=== PATIENT | female | born 1930 | race Caucasian/White ===

== ENCOUNTER 2016-08-24 08:07 | Inpatient (IN) | payer OTHER ==
--- NOTE | ~2016-08-24 | CN ---
Consultation Report [facility] [address] [place]. [address] NAME: IDALIA MULLIGAN : 31 STATUS : ADM IN PAT#: [id number] AGE: 85 ADM/REG DATE : 08/24/16 MR#: [id number] REPORT SERV DATE: 08/27/16 DICTATED BY: HUGO FRAGA DATE: 08/27/16 REPORT STATUS : Draft TRANSCRIBED BY: MODJodi DATE: 08/27/16 CONSULTATION DATE OF CONSULTATION: REASON FOR CONSULTATION: Hyponatremia. HISTORY OF PRESENT ILLNESS: This is a fairly pleasant 85-year-old female patient, who was admitted to the Hospitalist Service. She was initially admitted by Dr. Humphreys with a complaint of falls and weakness. The patient has had some level of intolerance and skin reactions to different medications and continues to have a skin disorder particularly on her lower extremities. This was felt to be subsequent to some medications is unclear. This patient has been discussed at length with her primary hospitalist, Dr. Mauri Navas. The patient is seen in the outpatient setting by insurance representative who is currently evaluating her for her skin disorder. She recently was evaluated at outpatient clinic in [facility] for her complaints as listed above. She was instructed by the staff at the outpatient clinic to aggressively provide hydration. Subsequently, she went home and did as instructed and progressively drove her sodium lower. She was noted to be in congestive heart failure with atrial fibrillation here on evaluation and hyponatremic with her sodium in the 120s. The patient was provided one dose of Samsca on 08/27/2015 with her sodium responding from a 120 to 123. We are asked to provide further evaluation as well as clinical support and possible further dosing of Samsca. The patient is awake and alert this afternoon. She denies current chest pain. No nausea, vomiting, or diarrhea. PAST MEDICAL HISTORY: Positive for previous hysterectomy, arthrosclerotic cardiovascular disease, lower extremity skin disorder followed by Dr. Parsons. Atrial fibrillation with no chronic anticoagulation due to falls. ALLERGIES: THE PATIENT IS SAID TO BE INTOLERANT OF SEVERAL MEDICATIONS AND WAS NOT ACTIVELY TAKING HER THYROID MEDICATION AT HOME WITH NOTED HYPOTHYROIDISM AND ELEVATED TSH HERE. HOME MEDICATIONS: Include metoprolol 25 mg p.o. in the evening and 50 mg in the morning. SOCIAL HISTORY: She lives in [place] and is provided some level of assistance and care by her son who lives close by. . No EtOH. No illicit drugs. No tobacco. FAMILY HISTORY: Noncontributory and not reviewed during this consultation. REVIEW OF SYSTEMS: Review of systems is completed. Please see HPI for pertinent details. PHYSICAL EXAMINATION: VITAL SIGNS: Blood pressure 146/65, temperature 97.4, respiratory rate is 16, and she is 100% on room air. Consultation Report [address] [place]. [address] NAME: IDALIA MULLIGAN : 31 STATUS : ADM IN PAT#: [id number] AGE: 85 ADM/REG DATE : 08/24/16 MR#: [id number] REPORT SERV DATE: 08/27/16 DICTATED BY: HUGO FRAGA DATE: 08/27/16 REPORT STATUS : Draft TRANSCRIBED BY: GUNJAN DATE: 08/27/16 GENERAL: She is awake, alert, oriented x3, in no acute distress, lying in bed during evaluation. HEENT: Normocephalic and atraumatic. Normal ocular movements. No scleral icterus. No conjunctival pallor is appreciated. NECK: Supple without thyromegaly. No JVD or mass. CHEST: Shows positive S1 and S2. No rubs. No gallops. LUNGS: Diminished, clear to auscultation throughout. Normal expansion and effort bilaterally. No rhonchi or wheezes to auscultation. ABDOMEN: Shows positive bowel sounds in all four quadrants. No appreciable mass or tenderness. GENITOURINARY: Deferred. She has a Osorio catheter to bedside drainage. NEUROLOGIC: appears to be grossly intact. Nonfocal. SKIN: Warm, dry, and intact to visualized surfaces. She does have a diffuse macular appearing macular nonpapillary rash on her bilateral lower extremities extending from her knees distally. This is followed by a insurance representative in the outpatient setting, Dr. Parsons. NEUROLOGIC: She appears to be grossly intact. Nonfocal. She is of appropriate mood and affect. LABORATORY DATA: Pertinent laboratories and imaging to this evaluation are as follows. B- natriuretic peptide 240.2. Electrolyte profile: Sodium 122, potassium 4.4, chloride 83, CO2 of 30, BUN 24, creatinine 1.11, reflected GFR at 46 mL/minute, glucose of 84, and calcium at 9.7. Most recent CBC shows white blood cell count of 4.9, RBC 4.18, hemoglobin 12.2, hematocrit 35.6, and platelets at 164. TSH is 13.900 with a T4 of 9.2, free T4 of 1.04. 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 She has been provided workup here for congestive heart failure with examination and clinical input from Cardiology. She is currently maintained on 1 mg of Bumex daily and appears to be reasonably euvolemic. She has received 1 dose of Samsca at 7.5 mg with minimal response to her sodium and her fluid restrictions have done little in the way to provide sustainable rise in her serum sodium. We will collect urine sodium, urine osmolality for evaluation which would suggest 15 mg of p.o. Samsca this evening with re-evaluation of her clinical laboratories in the morning. With dosing of her Samsca, we will relax her fluid restriction to 1500 mL daily and follow her with serial laboratories and further supportive care. Modify treatment plan based on clinical presentation, patient laboratory results, further consultation with renal attending. We appreciate consultation, glad to follow with you. DICTATED BY: Esutardo Clayton NP Consultation Report [address] [address] NAME: IDALIA MULLIGAN : 31 STATUS : ADM IN PAT#: [id number] AGE: 85 ADM/REG DATE : 08/24/16 MR#: [id number] REPORT SERV DATE: 08/27/16 DICTATED BY: HUGO FRAGA DATE: 08/27/16 REPORT STATUS : Draft TRANSCRIBED BY: MODJodi DATE: 08/27/16 /GUNJAN Hugo Fraga M.D. / [id number] CC: Marianne Valdez M.D.
--- NOTE | ~2016-08-24 | HP ---
History And Physical [address] [facility]. [address] NAME: IDALIA MULLIGAN : 31 STATUS : ADM IN [facility]#: [id number] AGE: 85 ADM/REG DATE : 08/24/16 MR#: [id number] REPORT SERV DATE: 08/24/16 DICTATED BY: EMELY RENEE DATE: 08/24/16 REPORT STATUS : Draft TRANSCRIBED BY: MODJodi DATE: 08/24/16 DATE OF ADMISSION: 08/24/2016 REASON FOR ADMISSION: Falling, weakness, and anasarca, suspect myxedema. HISTORY: This is an 85-year-old white female, who has trouble with multiple thyroid medications. She is followed by Dr. Sherri Arambula and is on natural thyroid at home. She went to the procurement inspector, Dr. Parsons and has seen Dr. Rodriguez in the past. She has a rash and was thought to have hypothyroidism causing the rash and the thyroid was doubled. Dr. Arambula reduced her thyroid back down. This is all that transpired in about the last two weeks. She has been going downhill since doubling the thyroid, now is feeling weak. She has been having some falling at home. She has some leg cramps and restless legs. The rash is worsening. She came to the emergency room where she was evaluated by Sampson SMITH, who found her BNP to be elevated and chest x-ray supportive of cardiomegaly with moderate congestive heart failure. She is admitted to the hospital for discovery of the heart failure and attention to the hypothyroidism. PAST MEDICAL HISTORY: She had a hysterectomy in the past. She was last hospitalized here in 2009. She is followed by Dr. Ky Painting and Dr. Ankit Lindquist for atherosclerotic cardiovascular disease but the patient is unable to remember the names. Her primary care doctor is Dr. Emely Sepulveda. She has seen Dr. Rodriguez and Dr. Parsons in the past for rash. She says she is alert, she is intolerant to several medications that give her a rash. HOME MEDICATIONS: Her home medications are limited to the following: Metoprolol 25 mg p.o. every evening and 50 mg every morning. She does have a longstanding history of atrial fibrillation over 4 years duration. She was told to take an aspirin a day but was not on any anticoagulant for this. ALLERGIES: SHE SAYS ARE ANTIBIOTICS. SOCIAL HISTORY: She lives alone in [place]. She has a son who lives locally and comes to see her from time to time and a daughter who lives in [place], [place]. She has a small dog that lives at home with her. She has been for many years. She does not smoke cigarettes or drink any alcohol. FAMILY HISTORY: She does not recall any diseases that run in the family. REVIEW OF SYSTEMS: She is having leg cramps. She hurts all over from her head to her toes. Her rash has gotten worse since she doubled her thyroid. She is intolerant of most thyroid medicines including Synthroid she believes. She has had fogginess of expression for the last four or five days. No fever, chills, or night sweats. No seizures, convulsions. No melena or hematemesis as far as she can recall. No chest pain. The remainder of the review of systems is negative. She has had a kidney stone in the past. History And Physical [address] [address] NAME: IDALIA MULLIGAN : 31 STATUS : ADM IN [facility]#: [id number] AGE: 85 ADM/REG DATE : 08/24/16 MR#: [id number] REPORT SERV DATE: 08/24/16 DICTATED BY: EMELY RENEE DATE: 08/24/16 REPORT STATUS : Draft TRANSCRIBED BY: GUNJAN DATE: 08/24/16 PHYSICAL EXAMINATION: VITAL SIGNS: Her blood pressure was 177/140 with a heart rate of 90, respiratory rate 18, and afebrile. HEENT: EOMI. Sclerae clear. Conjunctivae pink. She has periorbital edema with waxy appearance to her skin. NECK: Her neck is slightly supple. Carotids equal. No bruit. No thyroid. CHEST: Clear anterior and laterally. HEART. Irregularly irregular. No murmur. ABDOMEN: Soft, nontender. Bowel sounds positive. Slightly protuberant. EXTREMITIES: Have 2+ pitting edema bilaterally. Distal pulses are trace in the dorsalis pedis posterior tibial. SKIN: There is nonblanching rash that appears maculopapular with lesions ranging from 3 to 5 mm all over her body. She has a large ecchymosis on her right knee from falling. LYMPHATICS: There is no adenopathy palpable. BREASTS: Grossly without mass. LABORATORY: CT scan of her brain shows no acute intracranial finding. Her Chem profile showed a procalcitonin less than 0.05. Sodium is 124, potassium 4.3, creatinine 0.88, BUN 24, and magnesium 1.9. CPK was elevated at 218 with a 9.6 percent MB fraction. Troponin less than 0.02. C-spine CT showed osteopenia with no compression fractures. Minimal 2 mm subluxation of 4 on 5 and degenerative changes at C5-6 and C6-7. BNP was 511. Lactate obtained at 1.1. The hemoglobin 11.5, hematocrit 33.7, white count is 4.3, and platelets are 157,000. The INR is 1.1. Portable chest showed cardiomegaly. ASSESSMENT: 1. Slight decline with feeling bad for the last two weeks duration. I suspect myxedema. TSH is ordered but not available yet. 2. Falling. Unsteady on the feet. Elevated CPK may be from the fall though may also be from a myopathy. 3. Muscle cramps. Legs are having muscle cramps. She was given IV Bumex earlier and may be a fall to the diuretic or may be part of a myxedematous myopathy. 4. Ecchymosis right knee. 5. Anasarca possibly due to myxedema. 6. History of urinary incontinence. 7. Polydipsia recently may be accounting for the increase in volume overload. 8. Hypothyroidism. Check TSH. 9. Prior cardiac history is consistent with atrial fibrillation followed by Dr. Painting and Dr. Lindquist. 10.Rash, non-blanching, diffuse, has seen two dermatologists. Consider vasculitis, possibly drug induced by her history. 11.Orthopnea. She is short of breath, lying down. We will check the echocardiogram during this hospitalization to evaluate the left ventricular ejection fraction and look for possible pericardial effusion. 12.History of hyponatremia. 13.Atrial fibrillation, longstanding, not anticoagulated. History And Physical [address] [place]. 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 15.Encephalopathy. Slow mentation consistent with hypothyroidism in the absence of the CT evidence of large ventricles though with her having both urinary incontinence and change in mental status. I would have to consider normal pressure hydrocephalus as a possible cause. PLAN: We are going to admit to the hospital. Check TSH urgently. Diuretics, replace electrolytes, perhaps start her on digoxin and consult Dr. Painting who knows the patient well for possible additional medication. SONIA/GUNJAN Emely Renee M.D. / [id number] CC: Marianne Valdez MD David Denman, M.D.
--- NOTE | ~2016-08-24 | IDS ---
Interim Discharge Summary [facility] [address] [place]. [address] NAME: IDALIA MULLIGAN : 31 STATUS : ADM IN PAT#: [id number] AGE: 85 ADM/REG DATE : 08/24/16 MR#: [id number] REPORT SERV DATE: 08/29/16 DICTATED BY: GARCÍA BUCIO DATE: 08/29/16 REPORT STATUS : Draft TRANSCRIBED BY: MODL DATE: 08/29/16 ADMISSION DATE: 08/24/2016 DISCHARGE DATE: TRACK GREASER: Demario Parsons M.D. QUANTITATIVE RESEARCH ANALYST: Ky Painting M.D. and he consulted here and signed off as well. CONSULTING PHYSICIAN: Renal, Dr. Mcdaniel. INTERIM DIAGNOSES: 1. Acute systolic congestive heart failure, improving. 2. Atrial fibrillation, controlled. 3. Coronary artery disease. 4. Hypertension. 5. Hyponatremia. 6. Hypothyroidism. 7. Dermatitis. DIAGNOSTIC EXAMS: CAT scan of the brain without contrast showing no acute intracranial finding demonstrated. Cervical CAT scan showing osteopenia, no compression fractures, minimal 2 mm subluxation at C4-C5 related to facet DJD, severe degenerative disk disease C5- C6 and C6-C7. Chest x-ray showing cardiomegaly, moderate failure. Echocardiogram showing EF of 45%. Normal right ventricular chamber size and systolic function, mild mitral, aortic, and tricuspid regurgitation, mild pulmonary hypertension. HOSPITAL COURSE: Please refer to the H and P done by Dr. Humphreys dated on 08/24/2016. Briefly, this is an 85-year-old female, who comes in with weakness. The patient used to follow up with Dr. Mariano but for about two years now has been using a walk-in clinic. The patient has multiple episodes of a rash and is following up with Dr. Parsons. She has several bouts of dermatitis, a bout of molluscum and a bout of actinic keratosis, and they tried several medications on her and the one that worked with good results last year was CellCept at 250 mg twice a day. The patient is afraid of using any medications as she fears that this would increase her rash and that has been her main problem. Meanwhile, she was following up with walk-in clinic. She was found to have hypothyroidism and they increased her thyroid medications. She then contacted Dr. Sherri Arambula, her service agent, and told her to bring it back down. She was also diagnosed with constipation and was told to increase her fluid intake and has been getting weaker for the past 10 days, finally was then brought to the emergency room, admitted by Dr. Humphreys and was found to be in congestive heart failure and hyponatremic. Her thyroid medication was increased as the TSH was found to be elevated and we got an echocardiogram, which shows the above findings. We got Dr. Painting involved and agreed with the plan and then signed off after a couple of days. As her volume status improve, her sodium remained low. She got two doses of Samsca and yet the sodium remains around 120 to 122. We got Renal involved, managed fluids, and we see the sodium trending upwards now with fluid restrictions and diuresis, and the patient seems to be clinically improving as well. We got Physical Therapy involved. They recommended the Interim Discharge Summary [address] [address] NAME: IDALIA MULLIGAN : 31 STATUS : ADM IN PAT#: [id number] AGE: 85 ADM/REG DATE : 08/24/16 MR#: [id number] REPORT SERV DATE: 08/29/16 DICTATED BY: GARCÍA BUCIO. DATE: 08/29/16 REPORT STATUS : Draft TRANSCRIBED BY: GUNJAN DATE: 08/29/16 patient to go to rehab, so once the patient's sodium improves further. The patient will need to follow up with rehab. Partner of [facility] will be following up the patient starting Tuesday. SOCO/GUNJAN García Bucio M.D. / [id number] CC: Marianne Valdez M.D.
--- NOTE | ~2016-08-24 | CN ---
Consultation Report [facility] [address] [place]. [address] NAME: IDALIA MULLIGAN : 31 STATUS : ADM IN PAT#: [id number] AGE: 85 ADM/REG DATE : 08/24/16 MR#: [id number] REPORT SERV DATE: 08/26/16 DICTATED BY: EVA PAINTING JR. DATE: 08/26/16 REPORT STATUS : Draft TRANSCRIBED BY: MODL DATE: 08/26/16 CARDIOLOGY CONSULT DATE OF CONSULTATION: 08/26/2016 REASON FOR CONSULTATION: CHF, atrial fibrillation. HISTORY OF PRESENT ILLNESS: Idalia Mulligan is an 85-year-old white female with history of multiple falls and refusal of anticoagulation for her chronic atrial fibrillation in the past. She presented to the hospital with pulmonary vascular congestion and cardiomegaly on her chest x-ray. Troponin normal. CPK elevated. TSH elevated at 13.9, free T4 of 1.0. Since being in the hospital, she has been aggressively diuresed with intravenous Bumex. She currently is not complaining of any chest pain. She says her breathing still is a bit short. She seems to be euvolemic on exam. Echo findings reviewed. In 2013, when I saw her last, her ejection fraction was 55%. It is now 45% and left atrial dimension has increased slightly from 4.0 to 4.2 cm and pulmonary artery pressure is mildly elevated at 44 mmHg. Sodium this morning 120, potassium 4.4, BUN and creatinine 19 and 1.0 respectively. ALLERGY: To some antibiotics. SOCIAL HISTORY: Has living will. Declines CPR life support, treatment of new conditions, tube feeding, etc. This is to be followed if quality of life becomes unacceptable and condition is irreversible. No illicit drugs. MEDICATIONS: Home medication and hospital medication list reviewed. Other physicians include primary care physician, Dr. Sepulveda and travel guide, Dr. Sherri Arambula. FAMILY HISTORY: Noncontributory. PHYSICAL EXAMINATION: BP: 130/61. PULSE: 62 to 75 and irregularly irregular. 99% saturation 2 L, respirations 18, afebrile. HEENT: No xanthelasma. NECK: No JVD at 30 degrees, no thyromegaly, no carotid bruit. LUNGS: Clear to auscultation and percussion. COR: No thrills, heaves, normal S1, S2. No gallop. No rub. No murmur. ABD: Soft, nontender, no hepatosplenomegaly, no mass. Consultation Report [address] [place]. [address] NAME: IDALIA MULLIGAN : 31 STATUS : ADM IN PAT#: [id number] AGE: 85 ADM/REG DATE : 08/24/16 MR#: [id number] REPORT SERV DATE: 08/26/16 DICTATED BY: EVA PAINTING JR. DATE: 08/26/16 REPORT STATUS : Draft TRANSCRIBED BY: ERICAL DATE: 08/26/16 EXT: Without pulse deficit. Bilateral lower extremity rash and mild bilateral edema. MS: Back without spine or costovertebral angle tenderness. NEURO: Symmetric findings. DISCUSSION: Chronic atrial fibrillation with controlled ventricular response with beta russell. Suggest continuation of the metoprolol at the current dose. Her ejection fraction has fallen over the last three years from 55% to 45% with some pulmonary congestive symptoms and signs. With intravenous loop diuretic, her sodium has dropped to 120 in spite of the fluid restriction. POTATO CHIP FRIER function a concern. Also, multiple fall history. In the past, she has refused anticoagulation and it is probably contraindicated in the present. She remains hypothyroid on laboratory studies. SUGGESTIONS: Continue beta russell for rate control. Agree with no anticoagulation for now and in the foreseeable future, but also reduce her loop diuretic and check a BNP in the morning. Treat hyponatremia, 120, more aggressively. Try one dose of 7.5 mg of tolvaptan at tonight and check electrolytes in the morning. Treat hypothyroidism. Thank you for this consultation. Dr. Mendoza and group to follow beginning tomorrow. DAVID/GUNJAN Eva Painting Jr., M.D. / [id number] CC: Marianne Valdez M.D.
--- NOTE | ~2016-08-24 | DS ---
Discharge Summary [facility] [address] [place]. [address] NAME: IDALIA MULLIGAN : 32 STATUS : DIS IN PAT#: [id number] AGE: 85 ADM/REG DATE : 08/24/16 MR#: [id number] REPORT SERV DATE: 09/03/16 DICTATED BY: DATE: REPORT STATUS : Draft TRANSCRIBED BY: MODL DATE: 09/02/16 ADMISSION DATE: 08/24/2016 DISCHARGE DATE: 09/02/2016 DISCHARGE DIAGNOSES: 1. Acute on chronic systolic heart failure. 2. Chronic atrial fibrillation without anticoagulation. 3. Hyponatremia. 4. Hypothyroid. 5. Hypertension. 6. Anasarca. 7. Coronary artery disease. 8. Multiple recent falls. CONSULTATIONS: Cardiology, Dr. Painting and Nephrology, Dr. Fraga. PROCEDURES AND IMAGIN. 08/24/2016, CT of the brain without contrast showed no acute intracranial finding. 2. 08/24/2016, portable chest x-ray showed cardiomegaly with moderate failure. HOSPITAL COURSE: This is a pleasant 85-year-old white female who has been admitted per Dr. Humphreys. Please see H and P dated 08/24/2016 for complete details regarding patient's admission. In brief, the patient was admitted for anasarca, hypothyroidism, and polydipsia. I assumed care of this patient on 09/01/2016. Please see interim discharge summary dictated by Dr. Navas on 08/29/2016. During the patient's stay, she has had increased weakness, congestive heart failure, and hyponatremia. Nephrology has been involved in managing her fluid status, and the patient has been clinically improving. At the time of my first assessment on 09/01, the patient had mild nonpitting edema to her knees which has now decreased to her lower sherman and ankle. The patient does have a scattered rash that is nonpruritic on her extremities and lower abdomen and has had history of seeing two prior dermatologists for this reason. The patient is also followed up by Dr. Sherri Arambula, Endocrinology, for her thyroid. The patient is not anticoagulated per Cardiology secondary to her multiple falls. The patient's ejection fraction was 45%. The patient's acute systolic heart failure has resolved to baseline. Cardiology defers statin at this time. The patient does follow up with Dr. Painting on a regular basis. The patient has been experiencing hyponatremia and has been stable for the last three days between 129 and 128. We will be ordering renal function profiles twice weekly x3 weeks during her stay at rehab. TSH will be reassessed in 6 weeks. The patient's hypertension has been stable. The patient continues to be on aspirin and beta-russell for her coronary artery disease. The patient has been having no complaint of pain, has been using bedpan instead of getting up to the bathroom. She denies any shortness of breath. Full 10 point exam was done. PHYSICAL EXAMINATION: VITAL SIGNS: Blood pressure is 152/69, O2 saturation is 98% on room air, temp is 96.7, heart Discharge Summary [address] [address] NAME: IDALIA MULLIGAN : 32 STATUS : DIS IN PAT#: [id number] AGE: 85 ADM/REG DATE : 08/24/16 MR#: [id number] REPORT SERV DATE: 09/03/16 DICTATED BY: DATE: REPORT STATUS : Draft TRANSCRIBED BY: MODL DATE: 09/02/16 rate is 69, respirations are 20. HEENT: Head is atraumatic, normocephalic. Pupils are equal, round, reactive to light and accommodation. No xanthelasma. Sclerae are clear and nonicteric. Neck: Supple with no obvious lymphadenopathy or thyromegaly. Neck veins are flat. Lungs: Lungs are diminished but clear throughout to auscultation. Normal respiratory effort. GI: Abdomen is soft and nontender. Active bowel sounds in all four quadrants. Normal bowel habitus. No palpable organomegaly. EXTREMITIES: Mild edema which is nonpitting on her feet and ankles. Dorsalis pedis and posterior tibial pulses are present and equal bilaterally. The patient does have a diffuse macular, nonpapillary rash on her bilateral lower extremities extending from her knees to her feet. MUSCULOSKELETAL: Moves all extremities x4. She is ambulatory with assistance. NEURO/PSYCH: The patient is alert and oriented x3, cooperative. Cranial nerves 2 through 12 are grossly intact. DIET: The patient is on a regular diet. DISCHARGE MEDICATIONS: Aspirin 325 mg daily, Flonase two sprays twice daily in each nares, Lasix 10 mg daily, melatonin 3 mg at bedtime, metoprolol 25 mg at bedtime and 50 mg every morning, potassium chloride 10 mEq daily, thyroid 75 mg daily, acetaminophen 650 mg p.o. or p.r.n. temp or headache q.4 hours, Dulcolax 10 mg suppository p.r.n. constipation, Colace 100 mg twice daily as needed, milk of magnesia 30 mL daily, Senokot two tablets at bedtime as needed. ALLERGIES: THE PATIENT STATES THAT ALL ANTIBIOTICS EXCEPT PENICILLIN GAVE HER RASH. DISCHARGE INSTRUCTIONS: The patient is to follow up with Dr. Sherri Arambula in 7 to 10 days. The patient is to follow up with Dr. Painting as previously directed. Should the patient have any more adverse symptoms or increased falls, the patient is to notify her PCP or to call the ER. This discharge took me approximately 40 minutes, spent coordinating discharge care of this patient including [id number] encounter and summarization of the discharge. DICTATED BY: Antonia Marvin NP [facility] [place] Antonia Marvin NP / [id number] Discharge Summary [address] [address] NAME: IDALIA MULLIGAN : 32 STATUS : DIS IN PAT#: [id number] AGE: 85 ADM/REG DATE : 08/24/16 MR#: [id number] REPORT SERV DATE: 09/03/16 DICTATED BY: DATE: REPORT STATUS : Draft TRANSCRIBED BY: GUNJAN DATE: 09/02/16 CC: Sampson Norman Jr, MD David Denman, M.D. James Hoback Jr., M.D. Asma Khan, MD
[~2016-08-24 08:07] MED LIST: BYSTOLIC5 MG PO; LEVOTHYROXIN50 MCG PO; TEKTUR150 PO
[2016-08-24 08:43] LABS: BASOPHILS 0.2 %; BASOPHILS ABSOLUTE 0.01 10/3/uL (0.0-0.16); EOSINOPHILS 6.1 %; EOSINOPHILS ABSOLUTE 0.26 10/3/uL (0.0-0.53); ER CBC TAT 0 Hrs 10 Mins; HEMATOCRIT 33.7 % (36.0-48.0); HEMOGLOBIN 11.5 g/dL (12.0-16.0); IMMATURE GRANULOCYTES 0.5 %; IMMATURE GRANULOCYTES ABSOLUTE 0.02 10/3/uL (0.0-0.11); LYMPHOCYTES 11.7 %; MEAN CORPUSCULAR HEMOGLOB 28.9 pg (26.0-34.0); MEAN CORPUSCULAR VOLUME 84.7 fL (80-100); MEAN PLATELET VOLUME 9.5 fL (9.2-13.0); MONOCYTES 10.1 %; MONOCYTES ABSOLUTE 0.43 10/3/uL (0.21-1.20); NEUTROPHILS 71.4 %; NEUTROPHILS ABSOLUTE 3.04 10/3/uL (2.02-8.40); RBC DISTRIBUTION WIDTH 14.7 % (12.0-16.0); RED CELL COUNT 3.98 10/6/uL (4.0-5.6); WHITE BLOOD CELLS 4.3 10/3/uL (4.5-10.5)
[2016-08-24 08:44] LABS: PROTIME (NOT ORD) 13.3 SEC (12.0-14.5)
[2016-08-24 08:45] LABS: MANUAL DIFF NO %; MEAN CORPUS HGB CONC 34.1 g/dL (32.0-36.0); PARTIAL THROMBO TIME 33.5 SEC (22.5-37.2); PLATELET COUNT 157 10/3/uL (150-400)
[2016-08-24 08:59] LABS: BUN (BLOOD UREA NITROGEN) 24 MG/DL (6-23); CALCIUM, SERUM 9.4 MG/DL (8.5-10.4); CHEST PAIN PROFILE TAT 0 Hrs 26 Mins; CHLORIDE, SERUM 90 MMOL/L (96-112); CK-MB 20.9 NG/ML; CKMB INDEX (NOT ORD) 9.6; CO2 (CARBON DIOXIDE) 27 MMOL/L (24-34); CPK 218 U/L (0-200); CREATININE 0.88 MG/DL (0.55-1.02); GFR AFRICAN AMERICAN 70 ML/MIN (>=60); GFR NON AFRICAN AMERICAN 60 ML/MIN (>=60); GLUCOSE, SERUM 97 MG/DL (60-99); POTASSIUM, SERUM 4.3 MMOL/L (3.5-5.3); SODIUM, SERUM 124 MMOL/L (135-148); TROPONIN I <0.02 NG/ML (<0.05)
[2016-08-24] MEDS ORDERED: LOP50 PO (09:01)
[2016-08-24] MEDS ORDERED: LOP25 PO (09:01)
[2016-08-24 09:04] LABS: PLATELET ESTIMATE ADQ (ADEQUATE); RBC MORPHOLOGY NORM (NORMAL)
[2016-08-24] MEDS ORDERED: THYROID PO ×2 (09:07→09:08)
[2016-08-24 09:09] LABS: LACTATE 1.1 MMOL/L (0.3-2.4)
[2016-08-24 09:31] LABS: PROCALCITONIN <0.05 ng/mL (<0.5)
[2016-08-24 17:19] LABS: FREE T4 1.04 NG/DL (0.76-1.46)
[2016-08-24 21:03] LABS: CALCIUM, SERUM 9.3 MG/DL (8.5-10.4); CHLORIDE, SERUM 87 MMOL/L (96-112); CO2 (CARBON DIOXIDE) 31 MMOL/L (24-34); CREATININE 0.94 MG/DL (0.55-1.02); GFR AFRICAN AMERICAN 65 ML/MIN (>=60); GFR NON AFRICAN AMERICAN 56 ML/MIN (>=60); GLUCOSE, SERUM 101 MG/DL (60-99); POTASSIUM, SERUM 4.5 MMOL/L (3.5-5.3); SODIUM, SERUM 124 MMOL/L (135-148)
[2016-08-24 21:04] LABS: BUN (BLOOD UREA NITROGEN) 20 MG/DL (6-23)
[2016-08-25 06:41] LABS: BUN (BLOOD UREA NITROGEN) 18 MG/DL (6-23); CALCIUM, SERUM 9.9 MG/DL (8.5-10.4); CHLORIDE, SERUM 85 MMOL/L (96-112); CO2 (CARBON DIOXIDE) 31 MMOL/L (24-34); CPK 203 U/L (0-200); CREATININE 0.98 MG/DL (0.55-1.02); GFR AFRICAN AMERICAN 61 ML/MIN (>=60); GFR NON AFRICAN AMERICAN 53 ML/MIN (>=60); GLUCOSE, SERUM 81 MG/DL (60-99); POTASSIUM, SERUM 4.3 MMOL/L (3.5-5.3); SODIUM, SERUM 122 MMOL/L (135-148)
[2016-08-26 06:24] LABS: BASOPHILS 0.2 %; BASOPHILS ABSOLUTE 0.01 10/3/uL (0.0-0.16); EOSINOPHILS 8.6 %; EOSINOPHILS ABSOLUTE 0.42 10/3/uL (0.0-0.53); HEMATOCRIT 35.6 % (36.0-48.0); HEMOGLOBIN 12.2 g/dL (12.0-16.0); IMMATURE GRANULOCYTES 0.2 %; IMMATURE GRANULOCYTES ABSOLUTE 0.01 10/3/uL (0.0-0.11); LYMPHOCYTES 13.4 %; LYMPHOCYTES ABSOLUTE 0.66 10/3/uL (0.67-4.30); MEAN CORPUS HGB CONC 34.3 g/dL (32.0-36.0); MEAN CORPUSCULAR HEMOGLOB 29.2 pg (26.0-34.0); MEAN CORPUSCULAR VOLUME 85.2 fL (80-100); MEAN PLATELET VOLUME 9.7 fL (9.2-13.0); MONOCYTES 10.6 %; MONOCYTES ABSOLUTE 0.52 10/3/uL (0.21-1.20); NEUTROPHILS ABSOLUTE 3.29 10/3/uL (2.02-8.40); PLATELET COUNT 164 10/3/uL (150-400); RBC DISTRIBUTION WIDTH 14.6 % (12.0-16.0); RED CELL COUNT 4.18 10/6/uL (4.0-5.6); WHITE BLOOD CELLS 4.9 10/3/uL (4.5-10.5)
[2016-08-26 06:25] LABS: MANUAL DIFF NO %
[2016-08-26 06:39] LABS: BUN (BLOOD UREA NITROGEN) 19 MG/DL (6-23); CALCIUM, SERUM 9.1 MG/DL (8.5-10.4); CHLORIDE, SERUM 80 MMOL/L (96-112); CO2 (CARBON DIOXIDE) 31 MMOL/L (24-34); GFR AFRICAN AMERICAN 60 ML/MIN (>=60); GFR NON AFRICAN AMERICAN 52 ML/MIN (>=60); GLUCOSE, SERUM 89 MG/DL (60-99); POTASSIUM, SERUM 4.4 MMOL/L (3.5-5.3); SODIUM, SERUM 120 MMOL/L (135-148)
[2016-08-26 10:59] LABS: ALBUMIN 3.5 G/DL (3.5-5.0); ALKALINE PHOSPHATASE 121 U/L (45-117); GLOBULIN 3.6 G/DL (2.5-4.1); SGOT(AST) 38 U/L (5-40); SGPT(ALT) 49 U/L (5-65); TOTAL BILIRUBIN 0.9 MG/DL (0-1.2); TOTAL PROTEIN 7.1 G/DL (6.0-8.5)
[2016-08-27 06:13] LABS: BUN (BLOOD UREA NITROGEN) 24 MG/DL (6-23); CALCIUM, SERUM 9.7 MG/DL (8.5-10.4); CHLORIDE, SERUM 83 MMOL/L (96-112); CO2 (CARBON DIOXIDE) 30 MMOL/L (24-34); CREATININE 1.11 MG/DL (0.55-1.02); GFR AFRICAN AMERICAN 53 ML/MIN (>=60); GFR NON AFRICAN AMERICAN 46 ML/MIN (>=60); GLUCOSE, SERUM 84 MG/DL (60-99); POTASSIUM, SERUM 4.4 MMOL/L (3.5-5.3); SODIUM, SERUM 122 MMOL/L (135-148)
[2016-08-28 06:53] LABS: ALBUMIN 3.3 G/DL (3.5-5.0); BUN (BLOOD UREA NITROGEN) 26 MG/DL (6-23); CALCIUM, SERUM 9.5 MG/DL (8.5-10.4); CHLORIDE, SERUM 84 MMOL/L (96-112); CO2 (CARBON DIOXIDE) 29 MMOL/L (24-34); CREATININE 1.05 MG/DL (0.55-1.02); GFR AFRICAN AMERICAN 56 ML/MIN (>=60); GFR NON AFRICAN AMERICAN 49 ML/MIN (>=60); GLUCOSE, SERUM 85 MG/DL (60-99); PHOSPHORUS, SERUM 3.9 MG/DL (2.5-4.5); POTASSIUM, SERUM 4.1 MMOL/L (3.5-5.3); SODIUM, SERUM 123 MMOL/L (135-148)
[2016-08-29 06:39] LABS: CALCIUM, SERUM 9.7 MG/DL (8.5-10.4); CHLORIDE, SERUM 88 MMOL/L (96-112); CO2 (CARBON DIOXIDE) 29 MMOL/L (24-34); CREATININE 1.13 MG/DL (0.55-1.02); GFR AFRICAN AMERICAN 52 ML/MIN (>=60); GFR NON AFRICAN AMERICAN 45 ML/MIN (>=60); GLUCOSE, SERUM 88 MG/DL (60-99); POTASSIUM, SERUM 3.6 MMOL/L (3.5-5.3); SODIUM, SERUM 126 MMOL/L (135-148)
[2016-08-29 06:41] LABS: BUN (BLOOD UREA NITROGEN) 35 MG/DL (6-23)
[2016-08-30 05:20] LABS: BUN (BLOOD UREA NITROGEN) 38 MG/DL (6-23); CALCIUM, SERUM 9.9 MG/DL (8.5-10.4); CHLORIDE, SERUM 89 MMOL/L (96-112); CO2 (CARBON DIOXIDE) 27 MMOL/L (24-34); CREATININE 1.17 MG/DL (0.55-1.02); GFR AFRICAN AMERICAN 50 ML/MIN (>=60); GFR NON AFRICAN AMERICAN 43 ML/MIN (>=60); GLUCOSE, SERUM 88 MG/DL (60-99); POTASSIUM, SERUM 3.9 MMOL/L (3.5-5.3); SODIUM, SERUM 126 MMOL/L (135-148)
[2016-08-30 19:55] LABS: ASCORBIC ACID (UR NOT ORDER) NEG (NEG); BILIRUBIN, URINE NEGATIVE (NEG); KETONE, URINE NEGATIVE (NEG); LEUKOCYTE ESTERASE(NOT OR LARGE (NEG); WBC (NOT ORDERED) (RFLEX) 73 (0-5)
[2016-08-30 20:59] LABS: OSMOLALITY, URINE 333 MOSM/KG (50-1200)
[2016-08-30 21:01] LABS: SODIUM, URINE 25 MEQ/L
[2016-08-31 05:11] LABS: BUN (BLOOD UREA NITROGEN) 38 MG/DL (6-23); CALCIUM, SERUM 9.8 MG/DL (8.5-10.4); CHLORIDE, SERUM 88 MMOL/L (96-112); CREATININE 1.23 MG/DL (0.55-1.02); GFR AFRICAN AMERICAN 47 ML/MIN (>=60); GFR NON AFRICAN AMERICAN 40 ML/MIN (>=60); POTASSIUM, SERUM 4.1 MMOL/L (3.5-5.3); SODIUM, SERUM 129 MMOL/L (135-148)
[2016-08-31 05:12] LABS: CO2 (CARBON DIOXIDE) 33 MMOL/L (24-34); GLUCOSE, SERUM 110 MG/DL (60-99)
[2016-09-01 08:43] LABS: ALBUMIN 3.1 G/DL (3.5-5.0); BUN (BLOOD UREA NITROGEN) 40 MG/DL (6-23); CALCIUM, SERUM 9.8 MG/DL (8.5-10.4); CHLORIDE, SERUM 90 MMOL/L (96-112); CO2 (CARBON DIOXIDE) 29 MMOL/L (24-34); CREATININE 1.11 MG/DL (0.55-1.02); GFR AFRICAN AMERICAN 53 ML/MIN (>=60); GFR NON AFRICAN AMERICAN 46 ML/MIN (>=60); GLUCOSE, SERUM 104 MG/DL (60-99); PHOSPHORUS, SERUM 4.2 MG/DL (2.5-4.5); POTASSIUM, SERUM 4.3 MMOL/L (3.5-5.3); SODIUM, SERUM 128 MMOL/L (135-148)
[2016-09-02 06:31] LABS: ALBUMIN 2.9 G/DL (3.5-5.0); BUN (BLOOD UREA NITROGEN) 41 MG/DL (6-23); CALCIUM, SERUM 9.7 MG/DL (8.5-10.4); CHLORIDE, SERUM 89 MMOL/L (96-112); CO2 (CARBON DIOXIDE) 31 MMOL/L (24-34); CREATININE 1.29 MG/DL (0.55-1.02); GFR AFRICAN AMERICAN 44 ML/MIN (>=60); GFR NON AFRICAN AMERICAN 38 ML/MIN (>=60); GLUCOSE, SERUM 88 MG/DL (60-99); POTASSIUM, SERUM 4.1 MMOL/L (3.5-5.3); SODIUM, SERUM 128 MMOL/L (135-148)
[2016-09-17] MEDS ORDERED: ARMOUR THYRO15 MG PO (13:25)
[2016-09-17] MEDS ORDERED: ASA5GR PO (13:25)
[2016-09-17] MEDS ORDERED: CEFT2 PO (13:27)
[2016-09-17] MEDS ORDERED: FLONASE NAS (13:27)
[2016-09-17] MEDS ORDERED: MELA3 PO (13:28)
[2016-09-17] MEDS ORDERED: L20 PO (13:28)
[2016-09-17] MEDS ORDERED: LOP50 PO (13:29)
[2016-09-17] MEDS ORDERED: PYR100B PO (13:30)
[2016-09-17] MEDS ORDERED: BISR PR (13:31)
[2016-09-17] MEDS ORDERED: T PO (13:31)
[2016-09-17] MEDS ORDERED: ZOFRAN ODT4 MG PO (13:32)
[2016-09-17] MEDS ORDERED: NORCO1 TA1 PO (13:32)
[2016-09-17] MEDS ORDERED: ULTRAM50 PO (13:33)
[2016-09-17] MEDS ORDERED: SENTAB PO (13:33)
[2016-09-17] MEDS ORDERED: KDUR10 PO (13:37)
== END 2016-09-02 16:57 | DRG 291 ==
LOC: ER 08:07 → 7NO 14:52
PROVIDERS: Internal Medicine; Internal Medicine Nephrology; Nurse Practitioner; Physician Assistant
DX: I11.0 Hypertensive heart disease with heart failure (principal); G93.40 Encephalopathy, unspecified; E22.2 Syndrome of inappropriate secretion of antidiuretic hormone; I48.2 Chronic atrial fibrillation; Z79.01 Long term (current) use of anticoagulants; E03.9 Hypothyroidism, unspecified; R25.2 Cramp and spasm; R63.1 Polydipsia; I50.21 Acute systolic (congestive) heart failure; I25.10 Atherosclerotic heart disease of native coronary artery without angina pectoris; M50.323 Other cervical disc degeneration at C6-C7 level
CPT/HCPCS: 70450; 71010; 72125; 80048; 80053; 80069; 81001; 82533; 82550; 82553; 83605; 83735; 83880; 83935; 84145; 84300; 84439; 84443; 84484; 85025; 85610; 85652; 85730; 87040; 87077; 87086; 87186; 93005; 93306; 96374; 96375; 97110-GP; 97116-GP; 97161-GP; 99285; A9270-GY; G8978-CJ-GP; G8979-CH-GP; J1170; J2405